=== PATIENT | female | born 1985 | race Caucasian/White ===

== ENCOUNTER 2021-08-11 13:18 | Outpatient (CLI) | payer OTHER, SELFPAY ==
--- NOTE | ~2021-08-11 | US_ITS ---
EXAMINATION: US OB <= 14 weeks fetus DATE: 08/11/2021 14:31 INDICATION: First trimester dating and viability assessment TECHNIQUE: Real-time pelvic transabdominal ultrasound was performed. COMPARISON: None. FINDINGS: The uterus measures 8.9 x 5.3 x 6.2 cm. There is an intrauterine gestational sac. A yolk s ac is identified. heart motion is identified measuring 165 beats per minute (bpm) by M-mode Dop pler. The crown rump length measures 1.3 cm , which correlates with an estimated gestational ag e of 7 weeks and 4 day(s) (+/-) 5 day(s). The right ovary measures 4.8 x 3.3 x 3.6 cm and contains a 3 cm cyst. The left ovary measures 3.4 x 1 .8 x 2.7 cm. There is normal vascular flow in the ovaries. There is no free fluid in the pelvis. IMPRESSION: 1. Live intrauterine with an estimated gestational age of 7 weeks and 4 day(s) (+/-) 5 day( s) and an estimated delivery date of 03/26/2022. Reviewed, dictated and finalized at location A. IMPRESSION: 1. Live intrauterine with an estimated gestational age of 7 weeks and 4 day(s) (+/-) 5 day(s) and an estimated delivery date of 03/26/2022.
--- NOTE | ~2021-08-11 | US_ITS ---
EXAMINATION: US thyroid DATE: 08/11/2021 14:31 INDICATION: Nontoxic goiter TECHNIQUE: Multiple ultrasound images of the thyroid were obtained. COMPARISON: None. FINDINGS: The right thyroid lobe measures 6.1 x 1.6 x 1.9 cm. The left thyroid lobe measures 5.5 x 1.9 x 2.2 c m. 1.5 cm wider than tall isoechoic solid nodule with smooth with ill-defined margins and without ec hogenic foci in the inferior right thyroid (TI-RADS 3, mildly suspicious , FNA if >=2.5 cm, annual fo llowup is >=1.5 cm). Additional TI RADS 3 nodules with identical imaging features measuring 7 mm in t he mid right thyroid lobe and 2.6 cm with small internal cystic component in the left thyroid lobe. T here is also an 8 mm mixed solid and cystic nodule at the inferior left thyroid (TI-RADS 2, not suspi cious, no FNA recommended). There is normal echotexture, echogenicity and vascular flow throughout th e surrounding thyroid gland. IMPRESSION: 1. Multinodular goiter. Amended ultrasound-guided biopsy of the 2.6 cm TI-RADS 3 left thyroid nodule. Reviewed, dictated and finalized at location A.
[2021-08-11 15:01] LABS: Thyroid Stimulating Hormone 1.29 uIU/mL (0.36-3.74)
[2021-08-14 02:40] LABS: T4 Thyroxine 12.8 mcg/dL (5.1-11.9)
== END 2021-08-11 13:19 | disposition home or self-care (01) ==
PROVIDERS: PCP Internal Medicine; Visit Provider Obstetrics & Gynecology
DX: E04.9 Nontoxic goiter, unspecified (principal); O36.70X0 Maternal care for viable fetus in abdominal pregnancy, unspecified trimester, not applicable or unspecified
CPT/HCPCS: 36415; 76536; 76801; 84436; 84443

== ENCOUNTER 2021-08-28 10:06 | Outpatient (CLI) | payer OTHER, SELFPAY ==
--- NOTE | ~2021-08-28 | US_ITS ---
EXAMINATION: US FNA w image guidance DATE: 08/28/2021 11:06 INDICATION: Nontoxic single thyroid nodule TECHNIQUE: A time-out was performed to verify the patient's name, date of , and procedure to be performed . The procedure and its benefits and risks were discussed with the patient. Risks specifically discus sed included bleeding and infection. The patient understood the risks and agreed to proceed. The neck was prepped and draped in the usual sterile manner. 3 mL 1% lidocaine was used for local anesthesia . 6 passes were made with a 25G needle into the lesion. Appropriate needle location was documented with continuous sonographic guidance. The specimens were passed to the lead technologist in cytogenetics in the room. A sterile bandage was applied. There were no immediate complications. FINDINGS: Grayscale ultrasound images demonstrate biopsy needles advanced into a 2.4 x 2.2 x 1.5 cm solid isoec hoic TI RADS 3 left thyroid nodule. IMPRESSION: 1. Successful ultrasound-guided fine needle aspiration of a 2.4 cm TI RADS 3 left thyroid nodule. Reviewed, dictated and finalized at location A. IMPRESSION: 1. Successful ultrasound-guided fine needle aspiration of a 2.4 cm TI RADS 3 l eft thyroid nodule.
== END 2021-08-28 10:07 | disposition home or self-care (01) ==
LOC: ANHIMG 10:08
PROVIDERS: PCP Internal Medicine; Visit Provider Otolaryngology
DX: E04.1 Nontoxic single thyroid nodule (principal)
CPT/HCPCS: 10005; 88173; 88305

== ENCOUNTER 2022-03-17 11:24 | Outpatient (RCR) | payer OTHER, SELFPAY ==
[2022-02-26 10:33] VITALS: BP 117/77; PULSE 83
[2022-03-05 09:47] VITALS: BP 121/70; PULSE 107
[2022-03-13 11:07] VITALS: BP 130/67; PULSE 107
== END 2022-04-06 08:08 | disposition home or self-care (01) ==
LOC: ANHOBOP 11:24
PROVIDERS: PCP Internal Medicine; Visit Provider Obstetrics & Gynecology
DX: O36.8130 Decreased fetal movements, third trimester, not applicable or unspecified (principal); O09.293 Supervision of pregnancy with other poor reproductive or obstetric history, third trimester; Z3A.36 36 weeks gestation of pregnancy; Z3A.37 37 weeks gestation of pregnancy; Z3A.38 38 weeks gestation of pregnancy
CPT/HCPCS: 59025

== ENCOUNTER 2022-03-17 11:24 | Inpatient (IN) | payer OTHER, SELFPAY ==
[2022-03-17] VITALS (34 sets, daily range): BP systolic 105–127; BP diastolic 65–85; PULSE 61–146; RESP 12–20; TEMP 36.4–36.7; O2SAT 89–100; BMI 31.1
--- NOTE | 2022-03-17 13:25 | WPDANESEPPF ---
Anes - Initial Pre Proc Eval Procedure: Operation Date: 03/19/22 07:30 Proposed Procedures p Repeat Section with Bilateral Tubal Ligation - Manuelito Jimenez MD Date/Time: 03/17/22 13:25 Surgeon: Manuelito Jimenez MD Pre Op Diagnosis: Patient Data Age: 36 Gender: F Height: Weight: Allergies Allergy/AdvReac Type Severity Reaction Status Date / Time Sulfa (Sulfonamide Allergy Unknown Unknown Verified 03/17/22 10:31 Antibiotics) Sulfonamides Allergy Intermediate Unknown Uncoded 03/17/22 10:31 Home Medications Medication Instructions Recorded Confirmed Type calcium carbonate 500 mg calcium 500 mg PO DAILY 08/06/21 03/05/22 History (1,250 mg) tablet prenat.vits,tushar,lih-[id number]-[id number] 1 tablet PO DAILY 08/06/21 03/05/22 History Patient hx anesthesia problems: none Family hx anesthesia problems: none Results Review: All pre-operative results and documents have been reviewed as part of the pre-operative evaluation. [facility] Past Medical History Medical History Atrial septal defect Encounter for gynecological examination (general) (routine) without abnormal findings Pre-conception counseling Surgical History Surgical History H/O LEEP History of section Family History Family History Father Hypertension High cholesterol Mother Hypertension Acute myocardial infarction Grandparent Acute myocardial infarction Social History Social History Smoking status: Never smoker Second hand tobacco smoke exposure: No Alcohol intake: current Substance use: never Spiritual care concerns: No Anes - Eval Final PreProcedure Day of Procedure 03/17/22 13:25 Patient weight: obese Heart: regular rate and rhythm Lungs: clear to auscultation and normal air movement Airway: Mallampati scale class II Neurological: alert and oriented Last oral intake: >/= 8 hours ASA classification: II Emergent: no Anesthetic plan: proceed Anesthesia type and monitoring: regional spinal and standard monitoring Results Review: All pre-operative results and documents have been reviewed as part of the pre-operative evaluation. Informed Consent: The patient's anesthetic plan and its attendant risks and benefits were discussed with the patient/family/POA. Questions were solicited and answers provided to the satisfaction of the patient/family/POA.
--- NOTE | 2022-03-17 13:38 | PM.IMHP ---
H&P: HPI History of Present Illness Date/Time: 03/17/22 13:38 Patient at 38 and 5 weeks by an EDC 03/26 based on 7 week ultrasound. She presented to the office for her routine OB visit. She had complained of increased cramping and and frequency with contractions. On exam in the office she did seem more effaced then what her prior exam was. She was sent to Labor and delivery. She was callum regularly. Her cervical exam reassessment showed that her cervix had changed she was 5 cm 80% effaced she was informed that she was in labor and recommend to proceed with delivery. She was originally scheduled for repeat and tubal ligation on . She has been counseled regarding risks benefits of a and tubal ligation and agrees to proceed with the for labor and desires elective repeat section today. C signficant for thyroid nodule requirng biopsy in first trimester, benign. She has a history of prior and desires repeat . She declines trial of labor. She also has satisfied parity and desires permanent sterilization, declines vasectomy and other nonpermanent forms of control. Chief Complaint: Active labor declines trial of labor. Review of Systems Review of Systems: All systems reviewed & are unremarkable except as noted in HPI and below Constitutional: Constitutional: Reports no additional constitutional complaints and Denies headache(s) Eyes: Eyes: Denies spots in vision ENT: Reports system reviewed and no additional complaints, except as documented and Denies headache(s) Cardiovascular: Cardiovascular: Denies chest pain and Denies dyspnea Respiratory: Respiratory: Denies dyspnea Gastrointestinal: Gastrointestinal: Reports no additional gastrointestinal complaints Genitourinary: Genitourinary: Reports amenorrhea Musculoskeletal: Musculoskeletal: Reports no additional musculoskeletal complaints Integumentary/Breasts: Skin/Breast: Denies breast mass and Denies rash Neurologic: Denies headache(s) Psychiatric: Psychiatric: Reports no additional psychiatric complaints PMFSH Past Medical History Medical History Atrial septal defect Encounter for gynecological examination (general) (routine) without abnormal findings Pre-conception counseling Surgical History Surgical History H/O LEEP History of section Family History Family History Father Hypertension High cholesterol Mother Hypertension Acute myocardial infarction Grandparent Acute myocardial infarction Social History Social History Smoking status: Never smoker Second hand tobacco smoke exposure: No Alcohol intake: current Substance use: never Spiritual care concerns: No Meds Home Medications and Allergies Home Medications Medication Instructions Recorded Confirmed Type calcium carbonate 500 mg calcium 500 mg PO DAILY 08/06/21 03/17/22 History (1,250 mg) tablet prenat.vits,tushar,bct-vobl-cvvnp 1 tablet PO DAILY 08/06/21 03/17/22 History Allergies Allergy/AdvReac Type Severity Reaction Status Date / Time Sulfa (Sulfonamide Allergy Unknown Unknown Verified 03/17/22 10:31 Antibiotics) Sulfonamides Allergy Intermediate Unknown Uncoded 03/17/22 10:31 Exam Const: General: no acute distress Eyes: General: appearance normal, both eyes and all related structures Resp: Effort & Inspection: normal respiratory effort Cardio: Rate: regular rate GI: Other: Gravid no fundal tenderness no right upper quadrant pain : Other: Cervix 5/80- 2 Skin: General skin exam: no rashes or lesions noted Neuro: Cognition (Neuro): normal cognition Extrem: General: normal to inspection Psych: Mental Status: mental status grossly normal
--- NOTE | 2022-03-17 13:41 | WPDHPUPDATE1 ---
History and Physical Update Update Date/Time: 03/17/22 13:41 History and Physical has been reviewed, including an updated exam of the patient. There are NO changes in the patient's condition. Risks, benefits, and alternatives have been discussed and questions answered. Patient agrees to proceed with procedure.
[2022-03-17] MEDS: LACTATED RINGERS 250 ML 999 ML IVPB (13:45)
[2022-03-17 13:53] LABS: Basophils Absolute Auto 0.1 K/mm3 (0.0-0.1); Basophils Percent Auto 0.4 % (0.2-1.2); Eosinophils Absolute Auto 0.4 K/mm3 (0-0.3); Eosinophils Percent Auto 2.5 % (0-4.4); Hematocrit 38.8 % (37.0-47.0); Hemoglobin 12.4 g/dL (12.0-15.0); Immature Granulocyte Absolute 0.12 K/mm3 (0.00-0.031); Immature Granulocyte Percent A 0.8 % (0-0.5); Lymphocytes Absolute Auto 2.27 K/mm3 (0.9-3.2); Lymphocytes Percent Auto 14.4 % (18.3-44.2); Mean Corpuscular Hemoglobin 27.9 pg (26-34); Mean Corpuscular Volume 87.2 fl (80-100); Mean Platelet Volume 10.3 fl (7.4-10.4); Monocytes Absolute Auto 1.1 K/mm3 (0.1-0.6); Monocytes Percent Auto 6.8 % (2.6-8.5); Neutrophils Absolute Auto 11.9 K/mm3 (1.3-6.7); Neutrophils Percent Auto 75.1 % (45.5-73.1); Platelet Count Result 271 k/mm3 (150-375); Red Blood Count 4.45 M/mm3 (4.2-5.4); White Blood Count 15.8 K/mm3 (4.5-10.0)
--- NOTE | 2022-03-17 15:31 | PC.NURSE ---
Addendum entered by Zeinab Smith RN 03/17/22 15:45: Wrong time charted, was on unit and decision made for c/s at 1258 not 1209 Original Note: 1209- on unit, decision made to perform C/S for spontaneous labor. Pt moved to room 120, nursery and anesthesia notified.
--- NOTE | 2022-03-17 15:33 | PC.NURSE ---
1124-Pt sent over from 's office for contractions and spotting at home. Pt has been 4 cm for the past week, order received to perform SVE and monitor pt and call with results.
[2022-03-17] MEDS: OXYTOCIN 30 UNITS/NS 500 ML 30 UNITS/500 ML BAG 125 UNITS IV CONT (16:25)
[2022-03-17] MEDS: KETOROLAC 30 MG/ML VIAL (*BKC) IV PUSH (17:17)
--- NOTE | 2022-03-17 17:55 | ADMGEN ---
This patient, Daksha Rand, was admitted to OB 2nd Floor Room 282-00. Patient/family oriented to hospital policies and general routines including ID bracelet, bed and alarms, visiting hours, pain management, procedures, bathroom and other care routines, personal items, smoking policy, room service/diet, and visiting hours. Information on how to activate the Rapid Response Team has been discussed. Patient/Family are encouraged to report perceived risks to care and to ask questions if they do not understand what they are told or what they should do.
[2022-03-17] MEDS: DEXTROSE 5%/0.45% SOD CHL 1,000 ML 125 ML IV CONT (20:50)
[2022-03-17] MEDS: SIMETHICONE 80 MG TAB.CHEW PO (22:22)
[2022-03-17] MEDS: IBUPROFEN 600 MG TABLET PO (22:24)
[2022-03-17] MEDS: DOCUSATE SODIUM 100 MG CAPSULE PO (22:25)
[2022-03-17] MEDS: HYDROcodone/acetaminophen (*CRX) 5-325 MG TABLET 1 TAB PO (22:25)
[2022-03-18 03:44] VITALS: BP 100/58; PULSE 81; RESP 18; TEMP 36.6
[2022-03-18] MEDS: SIMETHICONE 80 MG TAB.CHEW PO ×2 (04:23→23:46)
[2022-03-18] MEDS: IBUPROFEN 600 MG TABLET PO ×4 (04:23→23:46)
[2022-03-18] MEDS: HYDROcodone/acetaminophen (*CRX) 5-325 MG TABLET 1 TAB PO ×4 (04:24→23:46)
[2022-03-18 05:08] LABS: Basophils Absolute Auto 0.1 K/mm3 (0.0-0.1); Basophils Percent Auto 0.3 % (0.2-1.2); Eosinophils Absolute Auto 0.1 K/mm3 (0-0.3); Eosinophils Percent Auto 0.5 % (0-4.4); Hemoglobin 10.3 g/dL (12.0-15.0); Immature Granulocyte Absolute 0.09 K/mm3 (0.00-0.031); Immature Granulocyte Percent A 0.5 % (0-0.5); Lymphocytes Absolute Auto 1.75 K/mm3 (0.9-3.2); Lymphocytes Percent Auto 10.2 % (18.3-44.2); Mean Corpuscular HGB Conc 32.2 g/dl (32-36); Mean Corpuscular Hemoglobin 27.9 pg (26-34); Mean Corpuscular Volume 86.7 fl (80-100); Mean Platelet Volume 11.2 fl (7.4-10.4); Monocytes Absolute Auto 1.2 K/mm3 (0.1-0.6); Neutrophils Percent Auto 81.5 % (45.5-73.1); Platelet Count Result 227 k/mm3 (150-375); Red Blood Count 3.69 M/mm3 (4.2-5.4); Red Cell Distribution Width 13.9 % (11.5-14.5); White Blood Count 17.2 K/mm3 (4.5-10.0)
[2022-03-18 07:00] VITALS: BP 101/61; PULSE 88; RESP 16; TEMP 36.9; O2SAT 99
--- NOTE | 2022-03-18 07:17 | P.OP_ITS ---
Procedure Note - Detailed Date of Procedure 03/17/22 Pre-op Diagnosis Undesired fertility- desires premanent sterilization. Post-op Diagnosis Other (same 3. Right parafallopian tube cyst) Procedure Performed Repeat cesearean section. Bilateral salpingectomy. Excision of parafallopain tube cyst. Surgeon Manuelito Jimenez MD Anesthesia Spinal Indications 1. Active labor 2. Undesired fertility 3. Right parafallopian tube cyst Findings 3.5 cm simple appearing cyst at the end of right fallopian tube. Description of Procedure After informed consent, risks and benefits of the procedure was discussed with the patient. The patient was taken to the operating room where she was placed in the dorsal lithotomy position with leftward tilt. After the prior placed epidural anesthesia was found to be adequate, she was then prepped and draped in the usual sterile fashion. A Pfannenstiel skin incision was made with a scalpel and carried through to the underlying layer of fascia. The fascia was then nicked in the midline, extending bilaterally. The fascia was dissected off the rectus muscles with cautery and sharply, superiorly and inferiorly. The rectus muscles were in the midline, and peritoneum was identified and entered bluntly. The pelvic organs were visualized. The bladder blade was then inserted. The vesicouterine peritoneum was identified and entered sharply with Metzenbaum scissors and extended bilaterally and then the bladder flap was created digitally. The thin low transverse uterine incision was then made with the scalpel and extended with bilateral index fingers in a crescent-shaped fashion. The head was delivered, loose nuchal cord manually reduced and the rest of the infant was delivered. The nose and mouth suctioned. The cord was clamped twice and cut. The infant was then handed off to the awaiting pediatric staff. The placenta was then delivered manually. The uterine cavity was sponge curretted. The uterus was then exteriorized. The uterine incision was then closed with 0 vicryl in a running locked fashion. Hemostasis noted. A second layer of 0 vicryl was used in an imbricating fashion for hemostasis. The ligature was used to cauterize the right fallopian tube with the parafallopian tube cyst from the mesosalpinx to the proximal ampullary region of the fallopian tube. The left distal fallopian tube was cauterized from mesosalpinx to the ampullary region of the fallopian tube. Hemostasis was noted both sites. The posterior cul de sac was irrigated. The uterus was then returned to the abdomen. Bilateral gutters were cleared off all clots and debris. The uterine incision was noted to be hemostatic. The muscle bellies were inspected and noted to be hemostatic. The subfascial layer was noted to be hemostatic, and the fascia was closed with 0 Vicryl in a running fashion. An area of the fascia near the left had mild bleeding and this area was reinformed with a running stitch of Ovicryl. Hemostasis noted. The subcutaneous layer was irrigated. Hemostasis obtained with cautery. The subcutaneous tissue was approximated with 3-0 Vicryl in a running fashion. The skin was closed in a subcuticular fashion with 4.0 vicryl on a [place] needle. Skin dermabond applied at incision. All instruments, needle, and lap counts were correct x3. The patient was taken to the recovery room in stable condition. Estimated Blood Loss -485.0 Urine Output 300
--- NOTE | 2022-03-18 07:51 | WPDANLDPN2 ---
Anes-Prog Note L&D Date/Time: 03/18/22 07:51 Comfortable throughout: section Neuraxial method: spinal Epidural/Spinal procedure site: clean & non-tender Neuro status: Neuro function grossly intact. Cardiovascular status: normal Respiratory status: normal Airway patency: baseline Mental status: baseline Post-Op hydration status: normal Vital Signs: Last Vital Signs Temp 36.9 C 03/18/22 07:00 Pulse 88 03/18/22 07:00 Resp 16 03/18/22 07:00 BP 101/61 03/18/22 07:00 Pulse Ox 99 03/18/22 07:00 Pain score (VAS): 3 I/O: Intake & Output 03/17/22 03/17/22 03/18/22 15:59 23:59 07:59 Intake Total 500 3000 Output Total 100 2200 Balance 400 800 Post-procedural complaints: none Patient feedback: Patient satisfied with anesthetic care.
--- NOTE | 2022-03-18 07:51 | WPDANLDNPN2 ---
Anes-Prog Note L&D-Neuraxial Date/Time: 03/18/22 07:51 Neuraxial medications: intrathecal PF morphine Opiod-related complaints: none Patient feedback: Patient satisfied with post-operative pain management.
--- NOTE | 2022-03-18 08:44 | PC.NURSE ---
0844 - Introductions were made, then consulted with patient to assess needs related to . Mother led the conversation with her experience feeding her infant so far. Encouraged understanding of the benefits of skin to skin (unwrapping infant and placing vertically on her chest), responsive feeding and how to watch for early feeding signs, frequency of feeding on demand about every 8-12 times in 24 hours (every 2-3 hours), milk production, duration of feeding, signs of adequate intake/output and how to record on the feeding sheet. Resources used to facilitate learning were used with the visual handouts. Mother voiced understanding of responsive feedings, stimulating with skin to skin, hand expressed colostrum, touch, talking to infant to encourage if it has been 2 -3 hours since the start of the last , to call if infant does not latch or there is discomfort with . Reported to the primary RN.
[2022-03-18] MEDS: MULTIVIT/MIN/PREN/FOL AC/IRON TABLET 1 TAB PO (10:17)
[2022-03-18] MEDS: DOCUSATE SODIUM 100 MG CAPSULE PO ×2 (10:17→17:52)
[2022-03-18 11:05] VITALS: BP 91/58; PULSE 82; RESP 18; TEMP 36.4; O2SAT 98
--- NOTE | 2022-03-18 11:15 | PC.NURSE ---
[id number] Consulted with patient to assess needs related to . Mother led conversation with her experience with feeding baby so far. Mother works well with her infant with encouragement related to being sleepy after circumcision. Mother returned demonstration of stimulating to wake and feed. Father of is actively involved. Reviewed working with , breast, nipples and how to protect the nipples with an optimal deep latch, good positioning, and good hand washing. Encouraged understanding the benefits of skin to skin, responding to feeding cues, frequencies of feeding 8-12 times in 24 hours (approximately 2-3 hours), duration of feedings, milk production, intake/output feeding sheet and signs of adequate intake encouraging swallowing at the breast. Reviewed positioning and alignment, supporting breast, off-centered (asymmetrical latch) and leading with the chin with big open wide gape. latched optimally to the right breast in cross cradle position for 5 min, then fell asleep. Mother demonstrated knowledge of stimulating infant to wake and breastfeed. Mother offered the left breast using football positioning. Reviewed positioning and alignment, supporting breast, off-centered (asymmetrical latch) and leading with the chin with big open wide gape. latched optimally. Education given to mother of how to visualize suck/swallow ratios and drinking at the breast. Infant was able to maintain latch without discomfort to mother. Nipple care reviewed with optimal latch and good positioning, comfort, healing with warm, wet washcloth to rinse breast, then leave open to air-dry, colostrum may be left on nipples to dry but have clean hands when touching the nipple/breast as needed. Resources used to facilitate learning were used from the visual handout/mom and baby guide. Parents voiced understanding of the education shared, calling for assistance if the does not latch or if there is discomfort with . Reported to the primary RN.
[2022-03-18] MEDS: CEPHALEXIN 500 MG CAPSULE PO ×3 (12:04→23:46)
--- NOTE | 2022-03-18 12:14 | PC.NURSE ---
On 03/18/22, the student, Unruly Sandoval, provided care and completed [facility] documentation on this patient. I have reviewed the student's documentation and agree with the findings.
[2022-03-18 12:39] LABS: Rapid Plasma Reagin Non-Reactive (NonReactive)
[2022-03-18 19:00] VITALS: BP 98/58; PULSE 98; RESP 20; TEMP 36.9
--- NOTE | 2022-03-18 23:48 | PM.OBPNVD ---
OB - PN: Subj Subjective Date/time seen: 03/18/22 0800 She states has adequate pain control. She has ambulated to restroom. Tolerated some solids. She thinks she had flatus. No emesis or nausea. Did notice some redness, itchiness below her incision to day and some redness where drape adhesive was. Lochia decreasing, no leg pain. OB - PN: Obj Data Labs CBC & Chem 7: 03/18/22 03:31 Labs: Laboratory Results - last 24 hr 03/17/22 03/18/22 13:30 03:31 WBC 17.2 H RBC 3.69 L Hgb 10.3 L Hct 32.0 L MCV 86.7 MCH 27.9 MCHC 32.2 RDW 13.9 Plt Count 227 MPV 11.2 H Immature Gran % (Auto) 0.5 Neut % (Auto) 81.5 H Lymph % (Auto) 10.2 L [place] % (Auto) 7.0 Eos % (Auto) 0.5 Baso % (Auto) 0.3 Lymph # (Auto) 1.75 [place] # (Auto) 1.2 H Eos # (Auto) 0.1 Baso # (Auto) 0.1 Abs Immat Gran (auto) 0.09 H Absolute Neuts (auto) 14.0 H Absolute Nucleated RBC 0.0 Nucleated RBC % 0.0 RPR Non-reactive OB - PN A/P Assessment and Plan (1) Previous section: Code(s): Z98.891 - History of uterine scar from previous surgery Status: Acute Assessment and Plan: POD1 s/p c/s salpingectomy and removal of parafallopian tube cyst. She is doing well. Erythematous area below incision, marked, will start oral antibiotics. Time Spent With Patient Time: Total time spent is greater than 50% in coordination of care (as documented) at patient's floor/unit and/or counseling patient: Exam Const: General: comfortable and no acute distress Resp: Effort & Inspection: normal respiratory effort GI: Other: nondistended, fundus firm below umbilicus incision intact no drainage, erythema at mons nontender area marked nonindurated Extrem: General: normal to inspection and no clubbing, cyanosis or edema Psych: Mental Status: mental status grossly normal Affect: normal affect
[2022-03-19] MEDS: IBUPROFEN 600 MG TABLET PO (05:10)
[2022-03-19] MEDS: HYDROcodone/acetaminophen (*CRX) 5-325 MG TABLET 1 TAB PO ×2 (05:10→10:31)
[2022-03-19] MEDS: CEPHALEXIN 500 MG CAPSULE PO (05:11)
[2022-03-19 07:45] VITALS: BP 123/86; PULSE 95; RESP 18; TEMP 36.5; O2SAT 99
--- NOTE | 2022-03-19 08:24 | PM.OBPNVD ---
OB - PN: Subj Subjective Date/time seen: 03/19/22 08:24 She states baby is well. She has ambulated well without problems. Tolerated regular food. Positive flatus. No leg pain. The area at her mons is less erythematous no significant pain. Lochia minimal. OB - PN: Obj Data Labs CBC & Chem 7: 03/18/22 03:31 Labs: Laboratory Results - last 24 hr 03/17/22 13:30 RPR Non-reactive OB - PN A/P Assessment and Plan (1) Previous section: Code(s): Z98.891 - History of uterine scar from previous surgery Status: Acute Assessment and Plan: POD2 s/p repeat csection salpingectomy. Erythema under incision improved. She desires to go home. Discharge precautions discussed. Will send home with antibiotics. (2) Encounter for sterilization: Code(s): Z30.2 - Encounter for sterilization Status: Acute Time Spent With Patient Time: Total time spent is greater than 50% in coordination of care (as documented) at patient's floor/unit and/or counseling patient: Exam Const: General: comfortable and no acute distress Resp: Effort & Inspection: normal respiratory effort GI: Other: Incision clean dry intact no drainage. Minimal erythema at the prior marked area, no increase swelling, no warmth Extrem: Other: nontender, no edema Psych: Mental Status: mental status grossly normal Affect: normal affect
--- NOTE | 2022-03-19 08:30 | PM.OBDSVD ---
DS: Admitting Diagnosis Discharge Date 03/19/22 Admitting Diagnosis Elective repeat ceserean section. Desires permanent sterilization. OB - DS: Summary Hospital Course Hospital Course: patient admitted on [id number] for labor. She was a scheduled for 2 days after that. She underwent her elective repeat section for labor. She also had desire for permanent sterilization she had a salpingectomy performed at the time she had a large cyst on her fallopian tube which was also excised. Postop day 1 patient was doing well she was ambulating had adequate pain control with oral medication was tolerating regular food. There was noted some erythema but type itchy area at the mons area not around her incision this was marked with the ink pen it was mildly itchy or tender. She was started on oral Keflex for possible early cellulitis On postop day 2 the erythema had mostly resolved. And the itchiness or tenderness had improved. She was ambulating well had positive flatus and desired discharge to home. Discharge precautions discussed. OB Procedures : Ultrasound OB Procedures Intrapartum: , Tubal ligation and Other ( Excision of right paratubal opiate tube cyst.) OB Procedures: : Antibiotics Peripartum Data Procedures: Procedures Operation Date: 03/17/22 14:00 Actual Procedure Side Surgeon p Section Not Applicable Manuelito Jimenez MD Operation Date: 03/19/22 07:30 <No data on this case meets the specified criteria> complications: other ( Possible early cellulitis of the mons improved with antibiotics.) Status at Discharge Functional status at discharge: independent ambulation Time Spent with Patient Time attestation: Total time spent providing and/or coordinating discharge services: Exam Const: General: cooperative Orientation/consciousness: oriented to person, oriented to place and oriented to time HENMT: General nose exam: Normal external nose present Eyes: General: appearance normal, both eyes and all related structures Resp: Effort & Inspection: normal respiratory effort GI: Inspection: normal to inspection Other: Incision intact clean and dry : Other: minimal erythema at the mons. Skin: General skin exam: normal color Neuro: General: oriented to person, oriented to place and oriented to time Extrem: General: normal to inspection and no calf tenderness Psych: Appearance: grossly normal Mental Status: mental status grossly normal DS: Data Data Completed and Pending Pending studies at discharge: Pending at discharge 03/17/22 14:59 Surgical [PTH] Routine Surgical [PTH] Routine Labs on day of discharge: Labs from last 24 hours 03/17/22 13:30 RPR Non-reactive Discharge Plan Discharge Attending physician on discharge: Manuelito Jimenez Consulting providers: Deandra Stanton Discharging Clinician: Manuelito Jimenez Anticipated Discharge Date/Time: 03/19/22 08:38 Patient Disposition: Home, Self-Care Activity: may shower, no driving, follow weight bearing status and pelvic rest Diet: regular Discharge Instructions: post section instructions. Take medication as prescribed. May take MiraLax or Colace for constipation. Call for any swelling at incision or drainage or increasing redness. Patient Instructions: Antibiotic Form Stand Alone Forms: General Discharge Information Follow-up/Referrals: Manuelito Jimenez MD [Physician] - Call for Appointment ( Call to get scheduled for 1 week) Discharge Medications: New hydrocodone-acetaminophen 5-325 mg Tablet 1 tablet PO Q3H PRN (Reason: Moderate Pain (4-6)) Qty: 25 RF: 0 cephalexin 500 mg Capsule 500 mg PO Q6HR Qty: 36 RF: 0 Continued prenat.vits,tushar,[id number] Tablet 1 tablet PO DAILY RF: 0 calcium carbonate [Calcium 500] 500 mg calcium (1,250 mg) tablet 500 mg PO DAILY RF: 0 Date of admission:
[2022-03-19] MEDS: MULTIVIT/MIN/PREN/FOL AC/IRON TABLET 1 TAB PO (10:31)
[2022-03-19] MEDS: DOCUSATE SODIUM 100 MG CAPSULE PO (10:31)
--- NOTE | 2022-03-19 12:55 | PC.NURSE ---
0867 - Mother led the conversation with her experience and plan to feed her so far and her ability to independently latch optimally without discomfort. Reminded parents to use good handwashing technique to prevent infection. Mother is feeding appropriately for growth of infant and understands stimulating to eat if needed. has had appropriate feedings in the last 24 hours meets the outcomes for weight, output and jaundice at this time. Mother states she is confident to continue effectively her infant at home or when to call for assistance and denies any additional assistance or education at this time. Reinforced understanding of milk production, transition of milk, signs of adequate intake, prevention/relief of engorgement, responsive after visualizing feeding cues, the different methods of stimulating to breastfeed 2-3 hours after the start of the last feeding, community resources, medication information reviewed per [facility] and when to call a provider using the resource of the mom and baby guide/[facility] website. Mother voiced understanding of the education shared. Reported to the primary RN.
[2022-03-20 10:01] VITALS: BP 113/75; PULSE 78; RESP 16; TEMP 37.2; O2SAT 99
== END 2022-03-19 11:11 | disposition home or self-care (01) | DRG 788 ==
LOC: ANHLDR 13:05 → ANHOB2 17:57
PROVIDERS: Admitting Provider Obstetrics & Gynecology; PCP Internal Medicine; Visit Provider Obstetrics & Gynecology
PROC: 10D00Z1 Extraction of Products of Conception, Low, Open Approach (ICD-10-PCS; CPT 59514; principal; 2022-03-17 14:00)
DX: O34.211 Maternal care for low transverse scar from previous cesarean delivery (principal); Z37.0 Single live birth; Z3A.38 38 weeks gestation of pregnancy; Z30.2 Encounter for sterilization; O99.892 Other specified diseases and conditions complicating childbirth; N83.8 Other noninflammatory disorders of ovary, fallopian tube and broad ligament
CPT/HCPCS: 36415; 85025; 86592; 86850; 86900; 86901; 88302; A9270; J0131; J1100; J1885; J2274; J2405; J2590; J7120